=== PATIENT | male | born 1950 | race Caucasian/White ===

== ENCOUNTER → 2018-06-02 | Outpatient (CLI) | payer OTHER | END | disposition home or self-care (01) | LOC: CA 09:32 | DX: J84.9 Interstitial pulmonary disease, unspecified (principal); K70.30 Alcoholic cirrhosis of liver without ascites; J30.9 Allergic rhinitis, unspecified | CPT/HCPCS: 36600 ==

== ENCOUNTER 2020-05-10 01:23 | Inpatient (IN) | payer OTHER ==
[~2020-05-10] VITALS: Ht 182.9 cm; Wt 63.5 kg
[2020-05-10 01:41] VITALS: Ht 182.9 cm; Wt 63.5 kg
[2020-05-10 02:23] LABS: BASOPHIL % 0.6 % (0.2-1.5); PLATELET COUNT 231 x10^3mcL (152-348); RED CELL DISTRIBUTION WIDTH 13.9 % (12.1-16.2)
[2020-05-10 02:52] LABS: ALKALINE PHOSPHATASE 88 U/L (46-116); ALT/SGPT 20 U/L (16-63); AST/SGOT 32 U/L (15-37); BILIRUBIN TOTAL 0.4 mg/dL (0.20-1.00); CALCIUM 10.1 mg/dL (8.5-10.1); CARBON DIOXIDE 38.3 mmol/L (21-32); CHLORIDE SERUM 98 mmol/L (98-107); CREATININE SERUM 0.8 mg/dL (0.7-1.3); GFR1 > 60 mL/min; GLUCOSE SERUM 88 mg/dL (74-106); POTASSIUM SERUM 5.3 mmol/L (3.5-5.1); SODIUM SERUM 138 mmol/L (136-145); TOTAL PROTEIN, SERUM 8.1 g/dL (6.4-8.2)
[2020-05-10 02:53] LABS: ALBUMIN 3.2 g/dL (3.4-5.0)
[2020-05-10] MEDS ORDERED: ESBRIET267 MG PO (03:29)
[2020-05-10] MEDS ORDERED: CEPACOL SORE TH1 LO4 PO (03:30)
[2020-05-10] MEDS ORDERED: QVAR REDIHALE10.6 GM INH (03:31)
[2020-05-10] MEDS ORDERED: MS CONTIN15 M1 PO (03:32)
[2020-05-10] MEDS ORDERED: COLACE100 MG PO (03:34)
[2020-05-10] MEDS ORDERED: ZINC OXIDE56.7 GM TOP (03:34)
[2020-05-10] MEDS ORDERED: LYRICA100 M1 PO (03:35)
[2020-05-10] MEDS ORDERED: APAP325 MG PO (03:37)
[2020-05-10] MEDS ORDERED: PEPCID AC20 M2 PO (03:37)
[2020-05-10] MEDS ORDERED: ATORVASTATIN CA10 M1 PO (03:38)
[2020-05-10] MEDS ORDERED: DEEP SEA45 ML NS (03:40)
[2020-05-10 05:04] VITALS: BP 127/85
[2020-05-10 06:16] VITALS: BP 124/85
[2020-05-10 08:56] VITALS: BP 109/72
[2020-05-10 09:34] LABS: CHOLESTEROL/HDL RATIO 3.4; MAGNESIUM 1.7 mg/dL (1.8-2.4)
[2020-05-10 13:03] VITALS: BP 108/75
[2020-05-10 17:05] VITALS: BP 169/118
== END 2020-05-10 21:43 | DRG 280 ==
LOC: ED 01:23 → DU 04:24
PROVIDERS: Emergency Medicine; ADMIT Internal Medicine; ATTEND Internal Medicine
DX: I21.4 Non-ST elevation (NSTEMI) myocardial infarction (principal); J96.01 Acute respiratory failure with hypoxia; J18.9 Pneumonia, unspecified organism; R64 Cachexia; Z68.1 Body mass index [BMI] 19.9 or less, adult; Z20.822 Contact with and (suspected) exposure to COVID-19; K74.60 Unspecified cirrhosis of liver; J44.9 Chronic obstructive pulmonary disease, unspecified; I10 Essential (primary) hypertension; E78.5 Hyperlipidemia, unspecified; I25.10 Atherosclerotic heart disease of native coronary artery without angina pectoris; E11.9 Type 2 diabetes mellitus without complications; J84.10 Pulmonary fibrosis, unspecified; E78.00 Pure hypercholesterolemia, unspecified; Z86.73 Personal history of transient ischemic attack (TIA), and cerebral infarction without residual deficits; Z88.8 Allergy status to other drugs, medicaments and biological substances; Z79.899 Other long term (current) drug therapy; Z79.891 Long term (current) use of opiate analgesic; Z79.01 Long term (current) use of anticoagulants
CPT/HCPCS: 85378; G0378; J1956; J2270; J2920; J7030; Q9967